=== PATIENT | female | born 1935 | race Caucasian/White ===

== ENCOUNTER 2020-09-16 12:49 | Outpatient (CLI) | payer MEDICARE ==
[2020-09-16] MEDS ORDERED: Magnevist 469MG/ML 20 ML VIAL ONE (15:14)
== END 2020-09-16 12:50 | disposition home or self-care (01) ==
LOC: BICMRI 12:49
PROVIDERS: ATTEND Nurse Practitioner Acute Care
DX: R41.89 Other symptoms and signs involving cognitive functions and awareness (principal); I67.82 Cerebral ischemia
CPT/HCPCS: 70553; 82565; A9579

== ENCOUNTER 2021-01-05 13:41 | Emergency (ER) | payer MEDICARE ==
[2021-01-05 14:57] LABS: #Basophils 0.1 thou/uL (0.0-0.2); #Eosinphils 0.2 thou/uL (0.0-0.7); #Lymphocytes 1.5 thou/uL (1.20-3.40); #Monocytes 0.9 thou/uL (0.11-0.59); #Neutrophils 7.9 thou/uL (1.40-6.50); %Basophils 0.6 % (0.0-1.0); %Eosinophils 1.7 % (0.0-10.0); %Lymphocytes 14.2 % (21.0-51.0); %Monocytes 8.1 % (0.0-10.0); %Neutrophils 75.4 % (42.0-75.0); Hemoglobin 12.3 g/dL (12.0-16.0); Mean Corpuscular HGB CONC 30.7 g/dL (32.0-36.0); Mean Corpuscular Hemoglobin 24.9 pg (27.0-31.0); Mean Corpuscular Volume 81.3 fL (78.0-98.0); Mean Platelet Volume 7.1 fL (7.4-10.4); Platelet Count 238 thou/uL (130-400); RBC Distribution Width 13.9 % (11.5-14.5); Red Blood Cell (RBC) Count 4.95 mill/uL (4.20-5.40); White Blood Cell (WBC) Count 10.4 thou/uL (4.8-10.8)
[2021-01-05 15:25] LABS: ALT (SGPT) 14 U/L (8-55); AST (SGOT) 20 U/L (5-34); Albumin 3.5 g/dL (3.4-4.8); Alkaline Phosphatase 105 U/L (40-110); Anion Gap 14 mmol/L (10-20); BUN (Urea Nitrogen) 22 mg/dL (9.8-20.1); Bilirubin, Total 0.4 mg/dL (0.2-1.2); Calc. Creatinine Clearance 0 mL/min (70-130); Calcium 9.3 mg/dL (7.8-10.44); Carbon Dioxide 22 mmol/L (23-31); Chloride 108 mmol/L (98-107); Globulin 3.5 g/dL (2.4-3.5); Glucose 115 mg/dL (83-110); Potassium 4.6 mmol/L (3.5-5.1); Sodium 139 mmol/L (136-145)
== END 2021-01-05 18:49 | disposition home or self-care (01) ==
LOC: ERS 13:41
DX: R55 Syncope and collapse (principal); Z88.6 Allergy status to analgesic agent; Z88.8 Allergy status to other drugs, medicaments and biological substances; F03.90 Unspecified dementia, unspecified severity, without behavioral disturbance, psychotic disturbance, mood disturbance, and anxiety
CPT/HCPCS: 70450; 71045; 80053; 83880; 84484; 85025; 93005

== ENCOUNTER 2021-02-19 15:55 | Inpatient (IN) | payer MEDICARE ==
[2021-02-19] MEDS ORDERED: Atropine Sulfate 1 mg/10 ml Syringe ONE (15:58)
[2021-02-19] MEDS ORDERED: EPINEPHrine 1 MG/10 ML Abboject SYRINGE ONE (15:58)
[2021-02-19] MEDS ORDERED: Ketamine 50 MG/ML (10ML VIAL) ONE (16:02)
[2021-02-19] MEDS ORDERED: Lidocaine 1% (PF) 30 ML VIAL ONE (16:59)
[2021-02-19 17:13] LABS: #Basophils 0.1 thou/uL (0.0-0.2); #Eosinphils 0.1 thou/uL (0.0-0.7); #Lymphocytes 2.3 thou/uL (1.20-3.40); #Monocytes 0.5 thou/uL (0.11-0.59); #Neutrophils 4.4 thou/uL (1.40-6.50); %Basophils 0.7 % (0.0-1.0); %Eosinophils 1.8 % (0.0-10.0); %Lymphocytes 31.2 % (21.0-51.0); %Monocytes 7.1 % (0.0-10.0); %Neutrophils 59.3 % (42.0-75.0); Hemoglobin 11.4 g/dL (12.0-16.0); Mean Corpuscular HGB CONC 31.6 g/dL (32.0-36.0); Mean Corpuscular Hemoglobin 25.3 pg (27.0-31.0); Mean Corpuscular Volume 80.1 fL (78.0-98.0); Mean Platelet Volume 8.7 fL (7.4-10.4); Platelet Count 207 thou/uL (130-400); RBC Distribution Width 13.9 % (11.5-14.5); Red Blood Cell (RBC) Count 4.49 mill/uL (4.20-5.40); White Blood Cell (WBC) Count 7.4 thou/uL (4.8-10.8)
[2021-02-19] MEDS ORDERED: Midazolam HCl 2 mg/2 ml Vial ONE ×2 (17:26→17:59)
[2021-02-19 17:28] LABS: INR-International Normal Ratio 1.1; PTT 26.7 sec (22.9-36.1); Prothrombin Time 14.2 sec (12.0-14.7)
[2021-02-19 17:40] LABS: ALT (SGPT) 8 U/L (8-55); AST (SGOT) 20 U/L (5-34); Albumin 3.1 g/dL (3.4-4.8); Alkaline Phosphatase 82 U/L (40-110); Anion Gap 15 mmol/L (10-20); BUN (Urea Nitrogen) 18 mg/dL (9.8-20.1); Bilirubin, Total 0.5 mg/dL (0.2-1.2); Calc. Creatinine Clearance 0 mL/min (70-130); Calcium 8.5 mg/dL (7.8-10.44); Carbon Dioxide 18 mmol/L (23-31); Chloride 112 mmol/L (98-107); Globulin 3.2 g/dL (2.4-3.5); Glucose 97 mg/dL (83-110); Protein, Total 6.3 g/dL (5.8-8.1); Sodium 140 mmol/L (136-145)
[2021-02-19] MEDS ORDERED: DOPamine 400 MG/D5W 250 ML 250 ML ONE (17:45)
[2021-02-19 18:11] LABS: SARS-CoV-2 NAA Rapid Test Not Detected (NotDetected)
[2021-02-19] MEDS ORDERED: Fentanyl 100 MCG/2 ML VIAL ONE (18:50)
[2021-02-19] MEDS ORDERED: Rocuronium Bromide 50 MG/5 ML VIAL ONE (18:52)
[2021-02-19] MEDS ORDERED: Norepinephrine 4 MG/4 ML VIAL ONE ×2 (18:52→18:56)
[2021-02-19 18:55] LABS: Actual Bicarbonate (HCO3a) 18.3 mEq/L (22-28); Base Excess (BEa) -8.8 mEq/L (-2.0 to +3.0); CO2 Tension 44.3 mmHg (35.0-45.0); Calcium, Ionized (arterial) 1.18 mmol/L (1.12-1.30); Carboxyhemoglobin (COHb) 0.3 gm% (0.0-3.0); Hemoglobin (Hb) 11.8 g/dL (12.0-16.0); O2 Tension (PaO2), arterial 142.5 mmHg (> 60.0); Potassium - ABG Lab 4.11 mmol/L (3.70-5.30)
[2021-02-19] MEDS ORDERED: Sodium Chloride 0.9% 30 ML ONE (19:08)
[2021-02-19] MEDS ORDERED: Propofol 500 MG/50 ML VIAL ONE (19:10)
[2021-02-19] MEDS ORDERED: Propofol 1,000 MG/100 ML VIAL IV ONE (19:13)
[2021-02-19] MEDS ORDERED: Norepinephrine 8 MG/0.9% NS 250 ML IVPB PRN (19:15)
[2021-02-19] MEDS ORDERED: Ventilator Sedation Protocol 1 EACH FS SCH (19:15)
[2021-02-19] MEDS ORDERED: fentaNYL Citrate/PF 2,000 MCG in Sodium Chloride 0.9% 60 ML IV PRN (19:16)
[2021-02-19] MEDS ORDERED: Lorazepam 2 MG/ML VIAL SLOW IVP PRN (19:18)
[2021-02-19 19:24] LABS: pH, Arterial 7.24 (7.35-7.45)
[2021-02-19 19:26] LABS: ALV-art Gradient 515.125 mmHg (0-20); Puncture Site LRA
[2021-02-19] MEDS ORDERED: Propofol BOLUS 1,000 MG/100 ML VIAL IV PRN (19:45)
[2021-02-19] MEDS ORDERED: DISCONTINUE PREVIOUS NARCOTIC PAIN MEDICATIONS AND BENZODIAZEPINES FS SCH (19:45)
[2021-02-19] MEDS ORDERED: Propofol 1,000 MG/100 ML VIAL IV PRN (19:45)
[2021-02-19] MEDS ORDERED: Fentanyl BOLUS 250 ML IVPB PRN (19:45)
[2021-02-19] MEDS ORDERED: Morphine 2 MG/ML VIAL SLOW IVP PRN (19:45)
[2021-02-19] MEDS ORDERED: Morphine 4 MG/ML VIAL SLOW IVP PRN (20:00)
[2021-02-19] MEDS: Sodium Chloride 0.9% 1,000 ML IV SCH (20:30)
[2021-02-19 20:31] LABS: Actual Bicarbonate (HCO3a) 17.8 mEq/L (22-28); Base Excess (BEa) -7.5 mEq/L (-2.0 to +3.0); CO2 Tension 35.3 mmHg (35.0-45.0); Calcium, Ionized (arterial) 1.16 mmol/L (1.12-1.30); Carboxyhemoglobin (COHb) 0.3 gm% (0.0-3.0); Hemoglobin (Hb) 11.5 g/dL (12.0-16.0); O2 Tension (PaO2), arterial 135.1 mmHg (> 60.0); pH, Arterial 7.32 (7.35-7.45)
[2021-02-19 20:37] LABS: ALV-art Gradient 177.275 mmHg (0-20); Puncture Site RBA
[2021-02-19] MEDS ORDERED: Fentanyl CADD 100 ML ONE (20:44)
[2021-02-19] MEDS: Fentanyl CADD 100 ML IV SCH (20:48)
[2021-02-19] MEDS: Lorazepam 2 MG/ML VIAL SLOW IVP PRN ×2 (21:18→22:23)
[2021-02-19] MEDS ORDERED: hydrALAZINE 20 MG/ML VIAL SLOW IVP SCH (22:15)
[2021-02-20 05:12] LABS: #Basophils 0.1 thou/uL (0.0-0.2); #Lymphocytes 1.7 thou/uL (1.20-3.40); #Monocytes 0.7 thou/uL (0.11-0.59); %Basophils 0.6 % (0.0-1.0); %Eosinophils 0.4 % (0.0-10.0); Hemoglobin 10.9 g/dL (12.0-16.0); Mean Corpuscular HGB CONC 30.7 g/dL (32.0-36.0); Mean Corpuscular Hemoglobin 24.8 pg (27.0-31.0); Mean Corpuscular Volume 80.7 fL (78.0-98.0); Mean Platelet Volume 8.4 fL (7.4-10.4); Platelet Count 186 thou/uL (130-400); White Blood Cell (WBC) Count 9.5 thou/uL (4.8-10.8)
[2021-02-20 05:33] LABS: Anion Gap 11 mmol/L (10-20); BUN (Urea Nitrogen) 18 mg/dL (9.8-20.1); Calc. Creatinine Clearance 47 mL/min (70-130); Calcium 8.6 mg/dL (7.8-10.44); Carbon Dioxide 21 mmol/L (23-31); Chloride 113 mmol/L (98-107); Glucose 96 mg/dL (83-110); Potassium 4.4 mmol/L (3.5-5.1); Sodium 141 mmol/L (136-145)
[2021-02-20 05:34] LABS: Troponin I 0.679 ng/mL (< 0.028)
[2021-02-20 08:32] LABS: Bacteria/HPF 4+ HPF (None Seen); Bilirubin Negative (Negative); Blood, Urine 3+ (Negative); Clarity Extra Turbid (Clear); Glucose, Urine (Dipstick) Normal (Negative); Ketone, Urine Trace mg/dL (Negative); Leukocyte 500 Leu/uL (Negative); Nitrite 2+ (Negative); Protein, Urine (Dipstick) 300 mg/dL (Neg-Trace); Specific Gravity, Urine 1.026 (1.002-1.036); Squamous Epithelial 0-3 HPF (0-3); Urobilinogen Normal mg/dL (Less than 2); WBC/HPF Greater than 50 HPF (0-3); pH, Urine 5.5 (5.0-9.0)
[2021-02-20 08:34] LABS: Urine Culture Reflex Yes Yes
[2021-02-20] MEDS ORDERED: Piperacillin/Tazobactam 3.375 GM in Sodium Chloride 0.9% 100 ML IVPB SCH ×2 (08:45→09:00)
[2021-02-20] MEDS ORDERED: Fentanyl CADD 100 ML ONE ×2 (08:53→21:53)
[2021-02-20] MEDS: Fentanyl CADD 100 ML IV SCH ×2 (08:55→22:05)
[2021-02-20] MEDS ORDERED: Furosemide 40 MG/4 ML VIAL SLOW IVP SCH ×2 (09:15→20:00)
[2021-02-20] MEDS: VANCOMYCIN 1.25 GM/250 ML BAG 1.25 GM in Premix Bag 1 BAG IVPB SCH (10:10)
[2021-02-20] MEDS: Lorazepam 2 MG/ML VIAL SLOW IVP PRN (10:55)
[2021-02-20] MEDS: Piperacillin/Tazobactam 3.375 GM in Sodium Chloride 0.9% 100 ML IVPB SCH ×2 (13:15→20:39)
[2021-02-21] MEDS: Sodium Chloride 0.9% 1,000 ML IV SCH (01:24)
[2021-02-21 04:20] LABS: #Eosinphils 0.1 thou/uL (0.0-0.7); #Lymphocytes 1.4 thou/uL (1.20-3.40); #Monocytes 0.9 thou/uL (0.11-0.59); #Neutrophils 8.7 thou/uL (1.40-6.50); %Basophils 0.4 % (0.0-1.0); %Eosinophils 0.5 % (0.0-10.0); %Lymphocytes 12.9 % (21.0-51.0); %Monocytes 7.9 % (0.0-10.0); %Neutrophils 78.4 % (42.0-75.0); Hemoglobin 9.8 g/dL (12.0-16.0); Mean Corpuscular HGB CONC 30.4 g/dL (32.0-36.0); Mean Corpuscular Hemoglobin 24.4 pg (27.0-31.0); Mean Corpuscular Volume 80.2 fL (78.0-98.0); Mean Platelet Volume 8.6 fL (7.4-10.4); Platelet Count 140 thou/uL (130-400); RBC Distribution Width 13.9 % (11.5-14.5); Red Blood Cell (RBC) Count 4.03 mill/uL (4.20-5.40); White Blood Cell (WBC) Count 11.1 thou/uL (4.8-10.8)
[2021-02-21 04:37] LABS: Anion Gap 14 mmol/L (10-20); BUN (Urea Nitrogen) 23 mg/dL (9.8-20.1); Calc. Creatinine Clearance 33 mL/min (70-130); Calcium 8.3 mg/dL (7.8-10.44); Carbon Dioxide 17 mmol/L (23-31); Chloride 114 mmol/L (98-107); Glucose 89 mg/dL (83-110); Potassium 3.5 mmol/L (3.5-5.1); Sodium 141 mmol/L (136-145)
[2021-02-21] MEDS: Piperacillin/Tazobactam 3.375 GM in Sodium Chloride 0.9% 100 ML IVPB SCH ×3 (05:07→20:34)
[2021-02-21] MEDS: Furosemide 40 MG/4 ML VIAL SLOW IVP SCH (08:35)
[2021-02-21] MEDS ORDERED: Potassium Chloride 20 MEQ TAB PO SCH (09:15)
[2021-02-21] MEDS: VANCOMYCIN 1.25 GM/250 ML BAG 1.25 GM in Premix Bag 1 BAG IVPB SCH (10:54)
[2021-02-21] MEDS ORDERED: Fentanyl CADD 100 ML ONE (11:24)
[2021-02-21] MEDS: Fentanyl CADD 100 ML IV SCH (11:31)
[2021-02-22] MEDS: Sodium Chloride 0.9% 1,000 ML IV SCH ×2 (00:19→07:18)
[2021-02-22] MEDS ORDERED: Fentanyl CADD 100 ML ONE ×2 (00:47→17:36)
[2021-02-22] MEDS: Fentanyl CADD 100 ML IV SCH ×2 (00:55→17:38)
[2021-02-22] MEDS: Piperacillin/Tazobactam 3.375 GM in Sodium Chloride 0.9% 100 ML IVPB SCH (05:23)
[2021-02-22] MEDS: Furosemide 40 MG/4 ML VIAL SLOW IVP SCH (07:20)
[2021-02-22] MEDS: cefTRIAXone\\ROCEPHIN 1 GM in Sodium Chloride 0.9% 100 ML IVPB SCH (09:30)
[2021-02-22] MEDS ORDERED: Lidocaine 1% (PF) 30 ML VIAL ONE (09:58)
[2021-02-22] MEDS ORDERED: CEFAZOLIN 1 GM VIAL ONE (09:58)
[2021-02-22] MEDS ORDERED: ceFAZolin 2 GM/DEX 5% 100 ML BAG ONE (09:58)
[2021-02-22] MEDS ORDERED: Gentamicin 80 MG/2 ML VIAL ONE (09:58)
[2021-02-22 10:06] LABS: Vancomycin, Trough 13.5 ug/mL
[2021-02-22 10:33] LABS: Anion Gap 17 mmol/L (10-20); BUN (Urea Nitrogen) 28 mg/dL (9.8-20.1); Calc. Creatinine Clearance 31 mL/min (70-130); Calcium 8.6 mg/dL (7.8-10.44); Carbon Dioxide 16 mmol/L (23-31); Chloride 115 mmol/L (98-107); Glucose 103 mg/dL (83-110); Potassium 3.7 mmol/L (3.5-5.1); Sodium 144 mmol/L (136-145)
[2021-02-22] MEDS ORDERED: Midazolam HCl 2 mg/2 ml Vial ONE (12:54)
[2021-02-23 04:36] LABS: #Eosinphils 0.2 thou/uL (0.0-0.7); #Lymphocytes 1.3 thou/uL (1.20-3.40); #Monocytes 0.8 thou/uL (0.11-0.59); #Neutrophils 7.4 thou/uL (1.40-6.50); %Basophils 0.2 % (0.0-1.0); %Lymphocytes 13.6 % (21.0-51.0); %Monocytes 8.2 % (0.0-10.0); Hemoglobin 8.7 g/dL (12.0-16.0); Mean Corpuscular HGB CONC 30.7 g/dL (32.0-36.0); Mean Corpuscular Hemoglobin 24.5 pg (27.0-31.0); Mean Corpuscular Volume 79.6 fL (78.0-98.0); Platelet Count 123 thou/uL (130-400); Red Blood Cell (RBC) Count 3.56 mill/uL (4.20-5.40); White Blood Cell (WBC) Count 9.7 thou/uL (4.8-10.8)
[2021-02-23 05:07] LABS: ALT (SGPT) 11 U/L (8-55); AST (SGOT) 28 U/L (5-34); Albumin 2.1 g/dL (3.4-4.8); Alkaline Phosphatase 69 U/L (40-110); Anion Gap 14 mmol/L (10-20); BUN (Urea Nitrogen) 35 mg/dL (9.8-20.1); Bilirubin, Total 0.5 mg/dL (0.2-1.2); Calc. Creatinine Clearance 32 mL/min (70-130); Calcium 8.4 mg/dL (7.8-10.44); Carbon Dioxide 17 mmol/L (23-31); Chloride 116 mmol/L (98-107); Globulin 2.4 g/dL (2.4-3.5); Glucose 105 mg/dL (83-110); Magnesium 1.9 mg/dL (1.6-2.6); Phosphorus 3.8 mg/dL (2.3-4.7); Potassium 3.2 mmol/L (3.5-5.1); Protein, Total 4.5 g/dL (5.8-8.1); Sodium 144 mmol/L (136-145)
[2021-02-23 05:26] VITALS: BMI 29.9
[2021-02-23] MEDS: cefTRIAXone\\ROCEPHIN 1 GM in Sodium Chloride 0.9% 100 ML IVPB SCH (07:08)
[2021-02-23] MEDS: Furosemide 40 MG/4 ML VIAL SLOW IVP SCH (07:08)
[2021-02-23] MEDS: Sodium Chloride 0.9% 1,000 ML IV SCH (07:09)
[2021-02-23] MEDS ORDERED: Pantoprazole 40 MG VIAL IVP SCH (09:00)
[2021-02-23] MEDS ORDERED: Dextrose 5 % And 0.9 % NaCl 1,000 ML IV SCH (09:15)
[2021-02-23] MEDS ORDERED: Morphine 4 MG/ML VIAL SLOW IVP SCH (09:31)
[2021-02-23] MEDS: Morphine 4 MG/ML VIAL SLOW IVP PRN ×2 (18:37→21:00)
[2021-02-23] MEDS ORDERED: Acetaminophen 650 MG Suppository PR PRN (23:16)
[2021-02-24 07:13] VITALS: BP 111/67; TEMP 98
[2021-02-24] MEDS ORDERED: Cephalexin 250 MG CAP PO SCH (12:00)
== END 2021-02-24 17:41 | disposition hospice, inpatient (51) | DRG 242 ==
LOC: ERS 15:55 → SURG A 18:21 → CCU 20:22 → T4-A 02-23 18:04
PROVIDERS: ADMIT Internal Medicine Cardiovascular Disease; ATTEND Internal Medicine Cardiovascular Disease
PROC: 5A1945Z Respiratory Ventilation, 24-96 Consecutive Hours (ICD-10-PCS; 2021-02-19)
PROC: 0BH18EZ Insertion of Endotracheal Airway into Trachea, Via Natural or Artificial Opening Endoscopic (ICD-10-PCS; 2021-02-19)
PROC: 02HV33Z Insertion of Infusion Device into Superior Vena Cava, Percutaneous Approach (ICD-10-PCS; 2021-02-19)
PROC: B548ZZA Ultrasonography of Superior Vena Cava, Guidance (ICD-10-PCS; 2021-02-19)
PROC: 5A1223Z Performance of Cardiac Pacing, Continuous (ICD-10-PCS; 2021-02-19)
PROC: 3E033XZ Introduction of Vasopressor into Peripheral Vein, Percutaneous Approach (ICD-10-PCS; 2021-02-19)
PROC: 0JH606Z Insertion of Pacemaker, Dual Chamber into Chest Subcutaneous Tissue and Fascia, Open Approach (ICD-10-PCS; principal; 2021-02-22)
PROC: 02HK3JZ Insertion of Pacemaker Lead into Right Ventricle, Percutaneous Approach (ICD-10-PCS; 2021-02-22)
PROC: 02H63JZ Insertion of Pacemaker Lead into Right Atrium, Percutaneous Approach (ICD-10-PCS; 2021-02-22)
DX: I44.2 Atrioventricular block, complete (principal); I21.A1 Myocardial infarction type 2; Z66 Do not resuscitate; J96.01 Acute respiratory failure with hypoxia; A41.9 Sepsis, unspecified organism; N39.0 Urinary tract infection, site not specified; I50.22 Chronic systolic (congestive) heart failure; R00.1 Bradycardia, unspecified; F03.90 Unspecified dementia, unspecified severity, without behavioral disturbance, psychotic disturbance, mood disturbance, and anxiety; I08.1 Rheumatic disorders of both mitral and tricuspid valves; I47.2 Ventricular tachycardia; B96.20 Unspecified Escherichia coli [E. coli] as the cause of diseases classified elsewhere; Z78.1 Physical restraint status; Z79.899 Other long term (current) drug therapy; Z79.82 Long term (current) use of aspirin
CPT/HCPCS: 33208; 33210; 36415; 36556; 36600; 71045; 80048; 80053; 80202; 81001; 82805; 83735; 84100; 84484; 85025; 85610; 85730; 86850; 86900; 86901; 87070; 87077; 87086; 87186; 87205; 93005; 93010; 93306; 94002; 94003; 96374; 96375; 96376; 99152; 99153; C1785; C1898; C9113; J0171; J0360; J0461; J0690; J0696; J1265; J1580; J1940; J2001; J2060; J2250; J2270; J2543; J2704; J3010; J3370; J3490; J7042; J7050; U0002